=== PATIENT | female | born 1980 | race Caucasian/White ===

== ENCOUNTER 2019-12-22 10:01 | Emergency (ER) | payer OTHER, SELFPAY ==
--- NOTE | ~2019-12-22 | XR_ITS ---
EXAMINATION: XR ankle LT min 3V EXAM DATE: 12/22/2019 10:33 INDICATION: Fell down stairs 12 days ago with persistent left ankle pain. Initial encounter. TECHNIQUE: Left ankle frontal, lateral and oblique projections obtained and reviewed. There is no pr ior study for comparison. FINDINGS: The left ankle mortise appears intact. There are no acute fractures or dislocations ident ified. There is no subcutaneous gas. The soft tissue is unremarkable. There are no radiopaque for eign bodies. IMPRESSION: No acute osseous findings. Reviewed, dictated and finalized at location A. IMPRESSION: No acute osseous findings.
[2019-12-22 10:34] VITALS: BP 144/77; PULSE 80; RESP 16; TEMP 37.4; O2SAT 100
--- NOTE | 2019-12-22 10:34 | ED.LOWEXIN ---
HPI - Extremity Injury (Lower) General Chief Complaint: Extremity Injury, Lower Stated Complaint: L/ankle pain Time Seen by Provider: 12/22/19 10:35 Source: patient and RN notes reviewed Mode of arrival: ambulatory Limitations: no limitations History of Present Illness HPI Narrative: 39-year-old female presents with concern for left ankle injury. Reports approximately 2 weeks ago she fell down stairs, injuring the medial aspect of her left ankle. Reports the time she had swelling, bruising, pain at rest, worsening pain with weightbearing. Reports she took ibuprofen with occasional relief. Reports pain has not been improving. Reports bruising and swelling have improved, but are not resolved. MD complaint: ankle injury Related Data Home Medications Medication Instructions Recorded Confirmed No Home Medications 12/22/19 12/22/19 Allergies Allergy/AdvReac Type Severity Reaction Status Date / Time No Known Allergies Allergy Unverified 11/18/17 17:16 Review of Systems Review of Systems: Narrative: CONSTITUTIONAL: Denies malaise, chills, sweats, or fever. CARDIOVASCULAR: Denies chest pain, palpitations RESPIRATORY: Denies cough or dyspnea. SKIN: Reports left ankle bruising, swelling MUSCULOSKELETAL: Reports left ankle pain NEUROLOGIC: Denies numbness, weakness All systems reviewed & are unremarkable except as noted in HPI and below PMFSH Comments At time of signature, agree with nursing past medical, surgical, social and family history. There is no relevant family history pertinent to the presenting complaint Exam Narrative: Exam Narrative: GENERAL: Well-appearing, well-nourished, and in no acute distress. HEAD: Normocephalic, atraumatic. EYES: PERRLA, conjunctivae clear NECK: Supple. CHEST: Speaks in full sentences. No respiratory distress. HEART: Regular rate and rhythm. Normal and equal peripheral pulses. EXTREMITIES: Left ankle, foot, digits of left foot have normal strength and sensation, normal range of motion. Mild edema, healing ecchymosis. 5/5 strength with digit and ankle flexion and extension. Normal sensation with sensitivity to light touch and pain. No open wounds, no skin tenting, no devitalized tissue or atrophy, no trophic changes, no obvious deformity, alignment normal, left medial tenderness, nearby joints and structures intact. Distal pulses palpable and equal bilaterally, skin warm, dry, pink. Capillary refill less than 3 seconds. SKIN: Warm, dry, no rash. NEURO: Alert and oriented x3. PSYCH: Normal mood and affect Course Course Emergency Course: Patient is aware of diagnosis, understands and agrees to treatment plan. Anticipatory guidance given. Patient agrees to follow-up as directed and is aware of reasons to seek care at the emergency department. Portions of this record may have been created with voice recognition software Vital Signs Vital signs: Vital Signs Temperature 99.4 F 12/22/19 10:34 Pulse Rate 80 12/22/19 10:34 Respiratory Rate 16 12/22/19 10:34 Blood Pressure 144/77 H 12/22/19 10:34 Pulse Oximetry 100 12/22/19 10:34 Temperature 99.4 F 12/22/19 10:34 Pulse Rate 80 12/22/19 10:34 Respiratory Rate 16 12/22/19 10:34 Blood Pressure 144/77 H 12/22/19 10:34 Pulse Oximetry 100 12/22/19 10:34 Reviewed. Patient has been instructed to follow up with her primary care provider within the next week regarding her elevated blood pressure today. MDM - Extremity Injury (Lower) MDM Narrative Medical decision making narrative: Patients injury and pain is consistent with musculoskeletal etiology. No signs of neurological or vascular compromise on exam. Compartments and tissues are soft without signs of compartment syndrome. Pain is felt appropriate for further evaluation on an outpatient basis. Critical Care Time Critical Care Time Critical Care Time: No Discharge Plan Discharge Clinical Impression: Ankle sprain and strain Patient Disposition: Home,
== END 2019-12-22 10:58 | disposition home or self-care (01) ==
PROVIDERS: Emergency Provider Nurse Practitioner
DX: S93.402A Sprain of unspecified ligament of left ankle, initial encounter (principal); S96.912A Strain of unspecified muscle and tendon at ankle and foot level, left foot, initial encounter; W10.9XXA Fall (on) (from) unspecified stairs and steps, initial encounter
CPT/HCPCS: 73610; 99213; G0463

== ENCOUNTER 2020-04-11 10:04 | Emergency (ER) | payer OTHER, SELFPAY ==
--- NOTE | ~2020-04-11 | XR_ITS ---
EXAMINATION: XR chest 2V DATE: 04/11/2020 10:42 INDICATION: Cough and night sweats TECHNIQUE: PA and lateral views of the chest were obtained. COMPARISON: None FINDINGS: Confluent airspace opacity in the posterior segment of the right upper lobe with additional more subt le opacity in the superior segment of the right midlung zone. No pulmonary edema, pleural effusion or pneumothorax. The cardiomediastinal silhouette is normal. Visualized bones and soft tissues are unre markable. IMPRESSION: 1. Airspace opacities in the right upper lobe and to lesser degree superior segment and the right mid lung zone consistent with pneumonia. Reviewed, dictated and finalized at location A. [employer] IMPRESSION: 1. Airspace opacities in the right upper lobe and to lesser degree superior seg ment and the right midlung zone consistent with pneumonia.
[2020-04-11 10:21] VITALS: BP 98/55; PULSE 76; RESP 18; TEMP 36.7; O2SAT 100
--- NOTE | 2020-04-11 10:32 | ED.URI ---
HPI - URI/Sore Throat General Chief Complaint: Upper Respiratory Infection Stated Complaint: night sweats/ma/diarrhea Time Seen by Provider: 04/11/20 10:07 Source: patient Mode of arrival: ambulatory Limitations: no limitations History of Present Illness HPI Narrative: 39-year-old female presents to [facility] with complaints of 1 week history of night sweats, dry cough, chills and intermittent diarrhea. Patient reports that she was exposed to an individual who tested positive for coronavirus 10 days ago. Patient has had 2 negative Covid test since then. Patient is a non-smoker. Patient denies recent travel. Patient not tried taking any [id number] medications for her symptoms. Patient denies fever, nausea, vomiting, shortness of breath, wheezing, sore throat, nasal congestion, sore throat or ear pain. MD elicited complaint: cough Onset (ago): week(s) (1) Able to tolerate fluids by mouth: Yes Exacerbating factors: nothing Relieving factors: nothing Context: sick contacts Associated symptoms: chills, diarrhea and other (night sweats ) Related Data Allergies Allergy/AdvReac Type Severity Reaction Status Date / Time No Known Allergies Allergy Verified 04/11/20 10:08 Review of Systems Constitutional: Constitutional: Reports chills, Denies fever(s) and Denies weakness ENT: Denies dysphagia, Denies vertigo, Denies dizziness, Denies epistaxis, Denies nasal congestion and Denies sore throat Cardiovascular: Cardiovascular: Denies chest pain and Denies radiating jaw, neck or arm pain Respiratory: Respiratory: Denies chest congestion, Reports cough, Denies dyspnea and Denies wheezing Gastrointestinal: Gastrointestinal: Denies abdominal pain, Denies bloating, Denies constipation, Reports diarrhea, Denies nausea and Denies vomiting Integumentary/Breasts: Skin/Breast: Denies rash Neurologic: Denies dizziness PMFSH Surgical History Surgical History (Updated 04/11/20 @ 10:35 by Zee Barajas APRN) Previous section Social History Social History (Updated 04/11/20 @ 10:34 by Zee Barajas APRN) Smoking status: Never smoker Gender identity (if verbalized by the patient): Female Comments At time of signature, I agree with nursing past medical, surgical, social and family history. There is no relevant family history pertinent to the presenting complaint. Exam Const: General: healthy appearing and no acute distress Orientation/consciousness: patient oriented x3 HENMT: Head: normal to inspection Ears: external ears normal, TM's normal bilaterally and EAC's normal General nose exam: Normal nares present Face and sinus: normal facial exam Mouth: Yes moist mucous membranes Throat: uvula midline Neck: Neck: normal visual inspection Resp: Effort & Inspection: normal respiratory effort, not labored, not tachypneic and no use of accessory muscles Auscultation: clear to auscultation bilaterally, no rales, no rhonchi and no wheezes Cardio: Rate: regular rate, not bradycardic and not tachycardic Rhythm: regular rhythm Heart sounds: no murmurs GI: GI Palp: Yes Soft to palpation, No Tenderness to palpation present (GI) and No Guarding due to palpation present (GI) Skin: General skin exam: normal color, no jaundice and no pallor Rashes: no rashes Wounds: no wounds Neuro: General: patient oriented x3, moves all extremities, no meningeal signs and no focal motor deficits Psych: Appearance: grossly normal Mental Status: mental status grossly normal Affect: normal affect Attitude: cooperative Thought content: Yes Normal thought content present Course Vital Signs Vital signs: Vital Signs Temperature 36.7 C 04/11/20 10:21 Pulse Rate 76 04/11/20 10:21 Respiratory Rate 18 04/11/20 10:21 Blood Pressure 98/55 L 04/11/20 10:21 Pulse Oximetry 100 04/11/20 10:21 Temperature 36.7 C 04/11/20 10:21 Pulse Rate 76 04/11/20 10:21 Respiratory Rate 18 04/11/20 10:21 Blood Pressure 98/5
== END 2020-04-11 11:05 | disposition home or self-care (01) ==
PROVIDERS: Emergency Provider Nurse Practitioner Family
DX: J18.9 Pneumonia, unspecified organism (principal); Z20.822 Contact with and (suspected) exposure to COVID-19
CPT/HCPCS: 71046; 87081; 87426; 87804; 87880; 99213; C9803; G0463

== ENCOUNTER 2021-06-27 19:36 | Emergency (ER) | payer OTHER, SELFPAY ==
[2021-06-27 19:51] VITALS: BP 113/74; PULSE 96; RESP 18; TEMP 36.6; O2SAT 100
--- NOTE | 2021-06-27 20:00 | ED.GENADULT ---
HPI - General Adult General Chief complaint: Dental/Oral Stated complaint: swollen neck,rt ear and throat pain Time Seen by Provider: 06/27/21 20:00 Source: patient Mode of arrival: ambulatory Limitations: no limitations History of Present Illness HPI narrative: 40-year-old female presents with complaint of right-sided neck, right ear pain, sore throat. States that she had a filling done today at dentist and at end of procedure they hit her tongue, and made it bleed. States she is unsure what they hit her tongue with, they were smoothing out the filling. Patient reports that she has anxiety when seeing the dentist and was numbed up and had nitrous oxide. Immediately when her tongue was hit and started bleeding she felt pain to her right ear. She later went home and began to have soreness to her neck and states neck now feels swollen and is having pain to throat with swelling. States this is the worst pain I have ever had . Patient is not well, in no distress, talkative. Patient was given a antibiotic mouthwash to use from her dentist. All systems reviewed and negative except as noted above. Related Data Home Medications Medication Instructions Recorded Confirmed atorvastatin 40 mg PO DAILY 06/27/21 06/27/21 drospirenone-ethinyl estradiol 1 tablet PO DAILY 06/27/21 06/27/21 [Juan (28)] phentermine 37.5 mg PO DAILY 06/27/21 06/27/21 Allergies Allergy/AdvReac Type Severity Reaction Status Date / Time No Known Allergies Allergy Verified 06/27/21 20:19 Review of Systems Review of Systems: CONSTITUTIONAL: Denies fever, chills, or sweats. EYES: Denies visual changes, redness, or discharge. ENT: Denies rhinorrhea, congestion. Reports tongue pain, sore throat, right ear pain, right-sided neck pain. CARDIOVASCULAR: Denies chest pain, palpitations, or edema. RESPIRATORY: Denies cough or dyspnea. GASTROINTESTINAL: Denies abdominal pain, nausea, vomiting, or diarrhea. GENITOURINARY: Denies dysuria or hematuria. SKIN: Denies rash or itching. MUSCULOSKELETAL: Denies back pain, joint pain, or myalgia. NEUROLOGIC: Denies headache, numbness, or weakness. PSYCHIATRIC: Denies anxiety or depression. All other systems reviewed are negative, except as documented in HPI. PMFSH Surgical History Surgical History (Updated 04/11/20 @ 10:35 by Zee Barajas APRN) Previous section Social History Social History (Updated 04/11/20 @ 10:34 by Zee Barajas APRN) Smoking status: Never smoker Gender identity (if verbalized by the patient): Female Comments At time of signature, agree with nursing past medical, surgical, social and family history. There is no relevant family history pertinent to the presenting complaint. Exam Narrative: GENERAL: This is a well-nourished, well-developed patient, in no apparent distress. HEAD: normocephalic, atraumatic. EYES: PERRL. Sclera clear/white. Vision is grossly intact. EARS: External ears normal, auditory canals clear and without drainage, TMs normal without perforation. Hearing grossly intact. NOSE: External nose normal with no obvious nasal discharge, nares without redness, no rhinorrhea. THROAT: Mucous membranes moist, posterior pharynx clear. No erythema or swelling noted. No exudates, no tonsillar swelling. There is no trauma to tongue noted. No trauma to oral mucosa noted. NECK: Neck supple, muscular tenderness to right sided neck, right-sided cervical lymph node swelling. Decreased range of motion to neck due to pain. CARDIOVASCULAR: Regular rate and rhythm without murmurs, gallops, or rubs. RESPIRATORY: Clear to auscultation. Breath sounds equal bilaterally. No wheezes, rales, or rhonchi. SKIN: warm, Dry, intact with no suspicious lesions or rash, good texture and turgor. NEURO: awake, alert, and oriented to person, place and time. There were no obvious focal neurologic abnormalities. EXTREMITIES: Normal range of motion all extremities. Course Course Level of
== END 2021-06-27 20:32 | disposition home or self-care (01) ==
PROVIDERS: Emergency Provider Nurse Practitioner Family; PCP Family Medicine
DX: K08.89 Other specified disorders of teeth and supporting structures (principal); R59.1 Generalized enlarged lymph nodes
CPT/HCPCS: 87081; 87880; 99213; G0463